=== PATIENT | female | born 1945 | race Caucasian/White ===

== ENCOUNTER 2017-08-21 19:03 | Inpatient (IN) | payer MEDICARE ==
[~2017-08-21 19:03] MED LIST: ISOVUE-370 76%-LOCM 1 ML ONE
--- NOTE | 2017-08-21 22:05 | CT ---
CT ANGIOGRAM BRAIN WITH IV CONTRAST AND 3D MIP RECONSTRUCTIONS: 08/21/17 PROVIDED CLINICAL HISTORY: Midline facial droop and difficulty speaking. FINDINGS: No comparison examinations are currently available. The ventricular system appears normal in size an d morphology. Evaluation for intracranial hemorrhage is limited given presence of IV contrast materia l, without gross evidence for such. There is no evidence for focal vessel stenosis, branch occlusion or aneurysm. The extracranial soft tissues and osseous structures demonstrate no acute abnormality. IMPRESSION: Normal CT angiogram of the brain. POS: [facility]
[2017-08-22] MEDS ORDERED: Acetaminophen 325 MG TAB PO PRN (02:19)
[2017-08-22] MEDS ORDERED: Ondansetron ODT 4 MG TAB SL PRN (02:19)
[2017-08-22] MEDS ORDERED: Sodium Chloride 0.9% 1,000 ML IV SCH (02:19)
[2017-08-22] MEDS ORDERED: Ondansetron HCl/PF 4 MG/2 ML Vial IVP PRN ×2 (02:19→04:11)
[2017-08-22 02:33] VITALS: BMI 34.3
[2017-08-22] MEDS ORDERED: HYDROcodone/Acetaminophen 10/325 mg Tablet PO PRN (04:11)
[2017-08-22] MEDS ORDERED: HYDROcodone/Acetaminophen 5/325 mg Tablet PO PRN (04:11)
[2017-08-22] MEDS ORDERED: Ondansetron ODT 4 MG TAB PO PRN (04:11)
[2017-08-22] MEDS ORDERED: Atorvastatin Calcium 40 MG TAB PO SCH (04:15)
[2017-08-22] MEDS ORDERED: Enoxaparin Sodium 40 MG/0.4 ML SYRINGE SC SCH (04:15)
[2017-08-22 05:57] LABS: #Lymphocytes 1.2 thou/uL (1.20-3.40); #Monocytes 0.8 thou/uL (0.11-0.59); #Neutrophils 8.4 thou/uL (1.40-6.50); %Basophils 0.3 % (0.0-1.0); %Eosinophils 0.3 % (0.0-10.0); %Lymphocytes 11.1 % (21.0-51.0); %Monocytes 7.7 % (0.0-10.0); %Neutrophils 80.6 % (42.0-75.0); Mean Corpuscular HGB CONC 33.6 g/dL (32.0-36.0); Mean Corpuscular Hemoglobin 33.2 pg (27.0-31.0); Mean Corpuscular Volume 98.8 fl (81.0-99.0); Mean Platelet Volume 6.7 fL (7.4-10.4); Platelet Count 283 thou/uL (130-400); RBC Distribution Width 11.6 % (11.5-14.5); Red Blood Cell (RBC) Count 4.23 mill/uL (4.20-5.40); White Blood Cell (WBC) Count 10.4 thou/uL (4.8-10.8)
[2017-08-22 06:09] LABS: Anion Gap 15 mmol/L (10-20); BUN (Urea Nitrogen) 13 mg/dL (9.8-20.1); Calc. Creatinine Clearance 89 mL/min (70-130); Calcium 9.3 mg/dL (7.8-10.44); Carbon Dioxide 20 mmol/L (23-31); Cardiac Risk 3.5 (Less than 4.5); Chloride 104 mmol/L (98-107); Cholesterol 215 mg/dl (< 200 Desired); Estimated GFR-MDRD 64; Glucose 123 mg/dL (83-110); HDL Cholesterol 61 mg/dL (>60 Neg Risk); LDL Cholesterol, Calculated 130 mg/dL; Magnesium 1.9 mg/dL (1.6-2.6); Potassium 4.1 mmol/L (3.5-5.1); Sodium 135 mmol/L (136-145); Triglycerides 118 mg/dL (Less than 150)
--- NOTE | 2017-08-22 07:29 | HP ---
DATE OF ADMISSION: 08/22/2017 PRIMARY CARE PHYSICIAN: Dr. Marks PRIMARY COMPUTER APPLICATIONS DEVELOPER: Dr. Mott TIME OF SERVICE: 0345 CHIEF COMPLAINT: Aphasia. HISTORY OF PRESENT ILLNESS: Ms. Martino is a 72-year-old white female with a history of insomnia, but really no other medical history. She sees Dr. Mott about once a year, just to make sure her heart is okay. She takes no medications. She presented to an outside Emergency Department [facility] for acute onset of headache yesterday morning and around 11:00 a.m. developed expressive aph lauren where her words that she was speaking were not the ones she was trying to say. She was seen and evaluated there. CT scan was negative. Labs were normal. She was subsequently tra nsferred to [facility] as we are the nearest stroke center. On arrival, the patient continued to be aphasic. She was not dysarthric and no other neurologic symp toms. She was seen and evaluated in the ER and we were subsequently called for admission. The patient was placed on the stroke unit as an inpatient, and the patient was seen and evaluated teresa und 0345. At that time she still had no other neurologic deficits. She was arousable and awake and alert. She clearly had almost a word salad picture and was also getting frustrated. She denies any fevers or c hills, no chest pain, shortness of breath, no nausea or vomiting. No diplopia or change in her visio n, hearing, taste or smell otherwise. At the outside ER, she got aspirin 324 mg, Neurology was contacted, but due to multiple factors, she was not a candidate for t-PA. PAST MEDICAL HISTORY: Insomnia. PAST SURGICAL HISTORY: None. HOME MEDICATIONS: None. ALLERGIES: SULFA and PENICILLIN G. FAMILY HISTORY: Negative for clotting or bleeding disorder. No immune dysfunction, no premature cor onary disease and no strokes at an early age. SOCIAL HISTORY: Negative for habits x3. REVIEW OF SYSTEMS: A 10-point review of systems was performed and negative for all other systems exc ept as per HPI. PHYSICAL EXAMINATION: VITAL SIGNS: Temperature is 99.1, pulse 72, blood pressure 140/82, respiratory rate 22, satting 96% on room air. GENERAL: She is awake. She is alert. She is oriented x3. She is in no acute distress. HEENT: Normocephalic and atraumatic. Pupils equal, round, reactive to light bilaterally, mucous mem bers moist. She had no visible lesions, no thrush. No uvula deviation. NECK: Supple. There is no lymphadenopathy, JVD or thyromegaly. She has normal carotid upstrokes wi thout delay. I do not appreciate bruits. LUNGS: Clear to auscultation bilaterally. She has good air movement and symmetric chest excursion. No wheezes or rales. CARDIOVASCULAR: She is regular. She has normal S1, S2. No S3 or S4. No audible murmurs. ABDOMEN: Obese is nontender, nondistended, no masses, no organomegaly. She has no rebound, rigidity or guarding. EXTREMITIES: No cyanosis, no clubbing, with trace pedal edema. SKIN: Warm was well. She has no rashes or lesions. NEUROLOGIC: Shows cranial nerves II-XII are grossly intact. She has no dysarthria, no slurred speec h, but she does have Wernicke's aphasia. She has 5/5 strength in all lower extremities with normal r eflexes. No evidence of dysdiadochokinesia, had a conjugate gaze. MUSCULOSKELETAL: Normal to inspection. She has no joint inflammation or palpable effusions or defor mity. LABORATORY DATA: Sodium 138, potassium 4.3, chloride 104, bicarb 23, BUN 16, creatinine 0.96, calciu m 9.9, and glucose 143. INR is 1.0. Troponin I was 0.02. Urinalysis was negative. CBC showed a wh ite count of 9.5, hemoglobin 15.2, hematocrit 44.4, and platelet count 226,000. White count had norm al differential. Portable chest x-ray showed no acute cardiopulmonary disease. CT scan of the brain showed no detectable acute intracranial abnormalities. ASSESSMENT AND PLAN: 1. Acute ischemic stroke, likely a left middle cerebral artery distribution involving the temporal l obe. We will get a MRI/MRA. We will hold off on the carotids as she has no physical findings. We w ill hold up on the echo unless there is a watershed appearance. We will follow up on the findings. Neurology consult. Fasting lipid profile has been ordered, we will start her on full aspirin daily, atorvastatin 20 mg daily, and get PT, OT, and speech therapy to see her. She did pass her bedside sw allow and again I do not think has no motor deficits. 2. Insomnia. We will continue home medications.
[2017-08-22 09:11] LABS: #Lymphocytes 1.1 thou/uL (1.20-3.40); #Monocytes 0.9 thou/uL (0.11-0.59); #Neutrophils 7.8 thou/uL (1.40-6.50); %Basophils 0.1 % (0.0-1.0); %Eosinophils 0.3 % (0.0-10.0); %Lymphocytes 11.2 % (21.0-51.0); %Monocytes 8.8 % (0.0-10.0); %Neutrophils 79.7 % (42.0-75.0); Hemoglobin 14.3 g/dL (12.0-16.0); Mean Corpuscular HGB CONC 33.1 g/dL (32.0-36.0); Mean Corpuscular Hemoglobin 32.6 pg (27.0-31.0); Mean Corpuscular Volume 98.6 fl (81.0-99.0); Mean Platelet Volume 6.6 fL (7.4-10.4); Platelet Count 284 thou/uL (130-400); RBC Distribution Width 11.5 % (11.5-14.5); Red Blood Cell (RBC) Count 4.37 mill/uL (4.20-5.40); White Blood Cell (WBC) Count 9.7 thou/uL (4.8-10.8)
[2017-08-22 09:17] LABS: PTT 36.3 SEC (22.9-36.1); Prothrombin Time 13.6 SEC (12.0-14.7)
[2017-08-22 09:19] LABS: Calcium 9.6 mg/dL (7.8-10.44); Chloride 104 mmol/L (98-107); Glucose 134 mg/dL (83-110); Sodium 135 mmol/L (136-145)
[2017-08-22 09:20] LABS: Anion Gap 12 mmol/L (10-20); Carbon Dioxide 23 mmol/L (23-31)
[2017-08-22 09:21] LABS: Alkaline Phosphatase 69 U/L (40-150)
[2017-08-22 09:22] LABS: Calc. Creatinine Clearance 86 mL/min (70-130); Estimated GFR-MDRD 62
[2017-08-22 09:23] LABS: BUN (Urea Nitrogen) 13 mg/dL (9.8-20.1)
[2017-08-22 09:24] LABS: ALT (SGPT) 18 U/L (8-55); AST (SGOT) 17 U/L (5-34)
[2017-08-22 09:27] LABS: CKMB 0.6 ng/mL (0-6.6)
--- NOTE | 2017-08-22 10:25 | CT ---
NONCONTRAST HEAD CT: Date: 08/22/17 HISTORY: Stroke alert. Increasing confusion. COMPARISON: 08/21/17 at 2106 hours. TECHNIQUE: Noncontrast head CT is performed from skull base to skull vertex. FINDINGS: No parenchymal hemorrhage. No extra-axial hematoma. No midline shift. Basilar cisterns are patent. Co rtical arias-white matter differentiation is preserved. Ventricles and sulci are patent and symmetric. Chronic small vessel ischemic changes of the white matter are identified. Intact calvarium. Adequate aeration of the sinuses and mastoid air cells. IMPRESSION: No acute intracranial process. Results of study discussed with Dr. Davenport on 08/22/17 at 0913 hours. CODE CR. POS: [facility]
--- NOTE | 2017-08-22 10:40 | PDOC.PN ---
- Subjective Encounter Start Date: 08/22/17 Encounter Start Time: 10:00 Subjective: f/u for ? TIA with expressive aphasia/dysphasia and ? word salad. CT brain -: x 2 negative and CTA brain negative. Persists with dysphasia. No hx of -: chronic med conditions, no exposure hx. Low-grade temp noted overnight. - Objective Resuscitation Status: Resuscitation Status FULL:Full Resuscitation MAR Reviewed: Yes Vital Signs & Weight: Vital Signs (12 hours) Temp Pulse Pulse Pulse Pulse Resp Resp 08/22/17 08:54 99.7 F H 83 80 81 82 18 15 Resp BP BP BP BP Pulse Ox Pulse Ox 08/22/17 08:54 22 H 143/78 H 146/104 H 129/88 143/78 H 95 97 Pulse Ox Pulse Ox 08/22/17 08:54 97 97 I&O: 08/21/17 08/22/17 08/23/17 06:59 06:59 06:59 Intake Total 308 Balance 308 Result Diagrams: 08/22/17 09:01 08/22/17 09:01 Additional Labs: Accuchecks 08/22/17 08:56 POC Glucose 130 H Radiology Reviewed by me: Yes (CT brain neg x 2, CTA brain negative) EKG Reviewed by me: Yes (Tele - SR in 70's) Phys Exam - Physical Examination awake but sleepy, +expressive aphasia, follows some commands mild distress HEENT: PERRLA, oral pharynx no lesions no nuchal rigidity Neck: no JVD, supple, full ROM Respiratory: no wheezing, clear to auscultation bilateral Cardiovascular: RRR Gastrointestinal: soft, non-tender, no distention, positive bowel sounds Musculoskeletal: no edema, pulses present no focal weakness, R hand dominant, + expressive aphasia Neurological: normal sensation, moves all 4 limbs Skin: normal turgor, cap refill <2 seconds Dx/Plan (1) Expressive aphasia Code(s): R47.01 - APHASIA Status: Acute Comment: ? CVA with negative CT brain and CTA brain, check MRI, carotids and Echo, continue ASA, Lipitor, stroke protocol, Consult Neurology (2) Fever Code(s): R50.9 - FEVER, UNSPECIFIED Status: Acute Comment: ? etiology, CXR negative, check blood cx x 2, Ucx, CSF with cx, Influenza panel (3) Headache Code(s): R51 - HEADACHE Status: Acute Qualifiers: Headache type: tension-type Comment: ? tension type, Acetominophen, r/o meningitis with CSF analysis, see above (4) TIA (transient ischemic attack) Status: Acute Comment: ? TIA with CT brain neg x 2 and CTA brain neg. MRI pending (5) Hyperglycemia Code(s): R73.9 - HYPERGLYCEMIA, UNSPECIFIED Status: Acute Comment: Check A1C in am - Plan plan discussed w/ family, PT/OT, foster care social worker, speech therapy, DVT proph w/ SCDs Continue Stroke protocol -: Convert to inpt status -: Check CSF cx, Blood and Ucx -: Check Influenza A/B antigen -: Continue ASA and Lipitor * Check TSH, Ammonia, A1C * AM lab: BMP, CBC
[2017-08-22] MEDS ORDERED: Lorazepam 2 MG/ML VIAL SLOW IVP PRN (10:54)
[2017-08-22] MEDS: Famotidine 20 MG TAB PO SCH ×2 (11:44→20:09)
[2017-08-22] MEDS: Aspirin 325 MG TAB PO SCH (11:44)
[2017-08-22] MEDS: Acetaminophen 325 MG TAB PO PRN ×3 (11:44→20:09)
--- NOTE | 2017-08-22 12:32 | MRI ---
MRI BRAIN NONCONTRAST: History: Altered mental status. FINDINGS: There is no evidence of acute intracranial hemorrhage or infarct. Mild chronic ischemic small vessel disease is apparent within the periventricular white matter of each cerebral hemisphere. There is no mass effect or shift of midline structures. Ventricles appear normal in size, shape, and position. IMPRESSION: No acute intracranial abnormalities are demonstrated. POS: [facility]
[2017-08-22 14:10] LABS: CSF Source CSF; Clarity Clear (Clear); Tube # 4
[2017-08-22 14:12] LABS: RBC Count - Manual 0 /cumm (None Seen); WBC/NonHematics Count - Manual 2 /cumm (0-5)
--- NOTE | 2017-08-22 15:42 | RAD ---
FLUOROSCOPIC GUIDED LUMBAR PUNCTURE 08/22/17 HISTORY: Fever. Altered mental status. FINDINGS: After explaining the procedure and answering all questions, the lower back was prepped and draped in the usual sterile fashion. Sterile technique, buffered local anesthesia, fluoroscopic guidance, and a posterior midline approach were used to carefully advance the tip of a 20 gauge spinal needle to the thecal sac at the L2-3 level. Opening CSF pressure was upper limits of normal at 24 cm water. A total volume of 9 mL clear CSF was collected in four sterile tubes and submitted to pathology for e valuation. Needle was removed. Patient tolerated the procedure well and was returned in unchanged con dition. Fluoro time: 0.1 minutes IMPRESSION: Technically successful fluoroscopic guided lumbar puncture. Pathology is pending. POS: [facility]
[2017-08-22] MEDS: Dextrose 5 % And 0.9 % NaCl 1,000 ML IV SCH (16:32)
--- NOTE | 2017-08-22 16:42 | ULT ---
CAROTID DUPLEX SONOGRAM 08/22/17 HISTORY: TIA. Vascular disease. FINDINGS: RIGHT: Mild plaque is present. Color and spectral doppler evaluation, peak systolic velocity of 96 cm/s and IC to CC ratio of 1.7 suggests no hemodynamically significant stenosis within the extracranial right ICA. Right vertebral artery is not visualized. LEFT: Color and spectral doppler evaluation, peak systolic velocity of 107 cm/s and IC to CC ratio of 1.6 s uggests no hemodynamically significant stenosis within the extracranial left IAC. Antegrade flow is p resent within the vertebral artery. IMPRESSION: Mild atherosclerosis. No sonographic evidence of significant extracranial ICA stenosis. POS: [facility]
[2017-08-22 17:43] LABS: Amphetamine Not Detected (NotDetected); Barbiturates Screen Not Detected (NotDetected); Benzodiazepine Screen Not Detected (NotDetected); Cocaine Metabolite Screen Not Detected (NotDetected); Medtox Control Line Valid? VALID (VALID); Medtox Reader # READER 1; Methadone Not Detected (NotDetected); Methamphetamine Not Detected (NotDetected); Opiate Screen Not Detected (NotDetected); Oxycodone Screen Not Detected (NotDetected); Phencyclidine (PCP) Not Detected (NotDetected); THC/Cannabinoid Screen Not Detected (NotDetected); Tricyclic Screen Not Detected (NotDetected)
[2017-08-22] MEDS: cefTRIAXone\\ROCEPHIN 2 GM in Sodium Chloride 0.9% 100 ML IVPB SCH (20:09)
[2017-08-22] MEDS: Atorvastatin Calcium 20 MG TAB PO SCH (20:09)
[2017-08-22] MEDS: Acyclovir Sodium 600 MG in Sodium Chloride 0.9% 100 ML IVPB SCH (20:16)
--- NOTE | 2017-08-22 20:30 | CON ---
DATE OF CONSULTATION: 08/22/2017 CONSULTING PHYSICIAN: Hospitalist Service. IMPRESSION: Acute encephalopathy without evidence of structural or infectious process at this point, metabolic studies were also unremarkable. PLAN: 1. EEG. 2. Cortisol level. HISTORY OF PRESENT ILLNESS: Ms. Martino is a 72-year-old white female who reportedly was in her normal state of health until just prior to admission. She started acting inappropriately while sitting at the table looking at Facebook. She complains of some frontal headache. She was taken to the [facility] and transferred here. She was thought to have possibly suffered a stroke. She had a n MRI of the brain done, which did not show any significant ischemic changes either acute or chronic. She underwent a lumbar puncture this afternoon, which was clear and colorless. There were 2 white cells, no red cells, glucose of 69, and protein at 33. Her other laboratory studies include a CBC, c oags, and complex metabolic panel, which were unremarkable. The patient had a low-grade temperature of 99.7 since admission. She is still complaining of headache, she has been able to take medication, but continues to talk inappropriately. PAST MEDICAL HISTORY: Otherwise, negative. FAMILY HISTORY: Noncontributory. ALLERGIES: CODEINE, SULFA. MEDICATIONS: She recently took some anti-flu medication just prior to the onset of these symptoms. REVIEW OF SYSTEMS: Otherwise, not obtainable. PHYSICAL EXAMINATION: VITAL SIGNS: Blood pressure 147/83, pulse 79, respirations 18, temperature 98.1. HEENT: Pupils are equal and reactive. Conjunctivae clear. Oropharynx is clear. EXTREMITIES: No cyanosis. NEUROLOGIC: She appears to be awake, but would not answer questions appropriately. I could not get her to follow any commands. Her speech seemed to be clear without any dysarthria. Cranial nerve exa m was grossly symmetric. Motor exam showed symmetric tone. No abnormal movements were seen. Gait w as not tested. SUMMARY: This is a 72-year-old woman with an acute encephalopathic picture following ingestion of so me anti-flu medication. Thus far, she seems to have ruled out for meningitis, encephalitis and strok e. There are no other obvious metabolic abnormalities. Obtain an EEG tomorrow and hopefully if this is a toxic reaction, she cleared shortly.
[2017-08-23 05:05] LABS: Hemoglobin A1c 5.3 % (4.0-6.0)
[2017-08-23 05:10] LABS: Band 1 % (5-11); Eosinophils 1 % (0-10); Hemoglobin 12.5 g/dL (12.0-16.0); Lymphocytes 15 % (21-51); MDiff Complete? YES; Mean Corpuscular HGB CONC 34.1 g/dL (32.0-36.0); Mean Corpuscular Hemoglobin 33.9 pg (27.0-31.0); Mean Corpuscular Volume 99.3 fl (81.0-99.0); Mean Platelet Volume 6.9 fL (7.4-10.4); Monocytes 5 % (0-10); Neutrophil 78 % (42-75); PLT Morphology Comment Appears Adequate; Platelet Count 232 thou/uL (130-400); RBC Distribution Width 11.6 % (11.5-14.5); Red Blood Cell (RBC) Count 3.69 mill/uL (4.20-5.40); White Blood Cell (WBC) Count 7.3 thou/uL (4.8-10.8)
[2017-08-23 05:12] LABS: Anion Gap 12 mmol/L (10-20); BUN (Urea Nitrogen) 15 mg/dL (9.8-20.1); Calc. Creatinine Clearance 91 mL/min (70-130); Calcium 8.5 mg/dL (7.8-10.44); Carbon Dioxide 22 mmol/L (23-31); Chloride 106 mmol/L (98-107); Estimated GFR-MDRD 66; Glucose 128 mg/dL (83-110); Potassium 3.8 mmol/L (3.5-5.1); Sodium 136 mmol/L (136-145)
[2017-08-23] MEDS: Dextrose 5 % And 0.9 % NaCl 1,000 ML IV SCH ×2 (05:53→16:46)
[2017-08-23] MEDS: Acyclovir Sodium 600 MG in Sodium Chloride 0.9% 100 ML IVPB SCH ×3 (05:53→20:15)
[2017-08-23] MEDS: Aspirin 325 MG TAB PO SCH (08:49)
[2017-08-23] MEDS: Famotidine 20 MG TAB PO SCH ×2 (08:49→20:14)
[2017-08-23] MEDS: Enoxaparin Sodium 40 MG/0.4 ML SYRINGE SC SCH (08:50)
--- NOTE | 2017-08-23 10:23 | PDOC.PN ---
- Subjective Encounter Start Date: 08/23/17 Encounter Start Time: 10:15 Subjective: f/u AMS and essentially negative w/u directed toward CVA but all neg. -: Still has confusion and word salad. - Objective Resuscitation Status: Resuscitation Status FULL:Full Resuscitation MAR Reviewed: Yes Vital Signs & Weight: Vital Signs (12 hours) Temp Pulse Resp BP Pulse Ox 08/23/17 04:00 98.5 F 71 18 108/72 96 Weight Weight 211 lb 8 oz I&O: 08/22/17 08/23/17 08/24/17 06:59 06:59 06:59 Intake Total 308 2283 Output Total 300 Balance 308 1982 Result Diagrams: 08/23/17 04:40 08/23/17 04:40 Additional Labs: Microbiology 08/22/17 16:43 Nasal swab Influenza Types A,B Direct EIA - Final 08/22/17 13:31 Spinal Fluid Culture Cryptococcal Antigen - Final 08/22/17 16:07 Venous blood - Right Hand Blood Culture - Preliminary Specimen has been received and culture in progress. No Growth to date. 08/22/17 16:07 Venous blood - Right Arm Blood Culture - Preliminary Specimen has been received and culture in progress. No Growth to date. Laboratory Tests 08/22/17 08/22/17 08/22/17 05:27 10:41 10:41 Hemoglobin A1c Ammonia 26 Triglycerides 118 Cholesterol 215 H LDL Cholesterol, Calc 130 HDL Cholesterol 61 TSH 3rd Generation 2.1183 Cortisol 08/22/17 08/23/17 10:41 04:40 Hemoglobin A1c 5.3 Ammonia Triglycerides Cholesterol LDL Cholesterol, Calc HDL Cholesterol TSH 3rd Generation Cortisol 22.40 Radiology Reviewed by me: Yes (MRI brain - neg, Carotids neg, Echo EF 50-55%, diast dysfxn) EKG Reviewed by me: Yes (Tele - SR) Phys Exam - Physical Examination alert to name, word salad HEENT: PERRLA, oral pharynx no lesions Neck: no JVD, supple Respiratory: no wheezing, clear to auscultation bilateral Cardiovascular: RRR Gastrointestinal: soft, non-tender, no distention, positive bowel sounds Musculoskeletal: no edema, pulses present expressive aphasia Neurological: moves all 4 limbs A x O x 1 Skin: normal turgor, cap refill <2 seconds Dx/Plan (1) Acute metabolic encephalopathy Code(s): G93.41 - METABOLIC ENCEPHALOPATHY Status: Suspected Comment: Suspected given presentation and essentially negative work up to date, supportive mgmt (2) Expressive aphasia Code(s): R47.01 - APHASIA Status: Acute Comment: Suspect related to encephalopathic presentation and not CVA as MRI brain is negative, monitor clinically, ? EEG (3) Fever Code(s): R50.9 - FEVER, UNSPECIFIED Status: Acute Comment: ? etiology, CXR negative, empiric Rocephin 2gm IV daily and Acyclovir pending final cx results from CSF (4) Headache Code(s): R51 - HEADACHE Status: Acute Qualifiers: Headache type: tension-type Comment: ? tension type, Acetominophen, r/o meningitis with CSF analysis, see above (5) Hyperglycemia Code(s): R73.9 - HYPERGLYCEMIA, UNSPECIFIED Status: Acute Comment: A1C 5.3 - Plan plan discussed w/ family, continue antibiotics, PT/OT, social media marketing analyst, out of bed/ambulate, DVT proph w/SCDs Continue supportive mgmt -: EEG pending -: Continue IVF's -: Continue Rocephin and Acyclovir -: D/C ASA * Continue to monitor for clinical improvement
--- NOTE | 2017-08-23 18:14 | PRG ---
DATE OF SERVICE: 08/23/2017. FOLLOWUP NEUROLOGIC EVALUATION Ms. Martino continues to act inappropriately. She repeats the same phrases, "I want to do, I want to g o," and otherwise has not acted appropriately to the family either. Her exam remains nonfocal. She has not had anything that appeared to be seizure-like since yesterday. Her EEG showed normal backgro und without evidence of epileptiform activity. Her cortisol level was 22. Her vital signs have been stable overnight. She has been started on antibiotics for treatment of urinary tract infection. Ms. Martino's clinical presentation is quite odd, is not very typical of encephalopathy. I am uncertai n to say whether this may be all psychogenic. Agree with the current treatment and would anticipate this situation should clear up if it were related to the urinary tract infection or medication reacti on.
[2017-08-23] MEDS: cefTRIAXone\\ROCEPHIN 2 GM in Sodium Chloride 0.9% 100 ML IVPB SCH (20:14)
[2017-08-23] MEDS: Atorvastatin Calcium 20 MG TAB PO SCH (20:14)
[2017-08-24] MEDS: Dextrose 5 % And 0.9 % NaCl 1,000 ML IV SCH ×3 (03:01→14:15)
[2017-08-24] MEDS: Acyclovir Sodium 600 MG in Sodium Chloride 0.9% 100 ML IVPB SCH ×3 (05:24→20:29)
[2017-08-24] MEDS: Famotidine 20 MG TAB PO SCH ×2 (08:10→20:15)
[2017-08-24] MEDS: Enoxaparin Sodium 40 MG/0.4 ML SYRINGE SC SCH (08:10)
--- NOTE | 2017-08-24 13:12 | PDOC.PN ---
- Subjective Encounter Start Date: 08/24/17 Encounter Start Time: 13:00 Subjective: f/u for encephalopathy likely medication effect. Improving mental status -: per family and patient. Interacting appropriately with family. - Objective Resuscitation Status: Resuscitation Status FULL:Full Resuscitation MAR Reviewed: Yes Vital Signs & Weight: Vital Signs (12 hours) Temp Pulse Pulse Resp BP BP Pulse Ox 08/24/17 11:10 97.6 F 66 18 132/83 96 08/24/17 09:08 66 147/85 H 08/24/17 08:50 97.7 F 68 18 96 08/24/17 07:15 97.7 F 68 18 134/77 96 08/24/17 04:00 98.2 F 68 20 135/78 96 Weight Weight 211 lb I&O: 08/23/17 08/24/17 08/25/17 06:59 06:59 06:59 Intake Total 2283 4010 Output Total 300 Balance 1983 4010 Result Diagrams: 08/23/17 04:40 08/23/17 04:40 Radiology Reviewed by me: Yes (EEG - negative) EKG Reviewed by me: Yes (Tele - SR) Phys Exam - Physical Examination Constitutional: NAD alert, responsive HEENT: PERRLA, oral pharynx no lesions Neck: no JVD, supple Respiratory: no wheezing, clear to auscultation bilateral Cardiovascular: RRR Gastrointestinal: soft, non-tender, no distention, positive bowel sounds Musculoskeletal: no edema, pulses present Neurological: normal sensation, moves all 4 limbs A x O x 2 Skin: normal turgor, cap refill <2 seconds Dx/Plan (1) Acute metabolic encephalopathy Code(s): G93.41 - METABOLIC ENCEPHALOPATHY Status: Suspected Comment: Suspected given presentation and essentially negative work up to date, supportive mgmt, improving (2) Expressive aphasia Code(s): R47.01 - APHASIA Status: Acute Comment: Suspect related to encephalopathic presentation and not CVA as MRI brain is negative, monitor clinically, resolved (3) Fever Code(s): R50.9 - FEVER, UNSPECIFIED Status: Acute Comment: ? etiology, CXR negative, empiric Rocephin 2gm IV daily and Acyclovir pending final cx results from CSF, resolved (4) Headache Code(s): R51 - HEADACHE Status: Acute Qualifiers: Headache type: tension-type Comment: ? tension type, Acetominophen, r/o meningitis with CSF analysis, see above (5) Hyperglycemia Code(s): R73.9 - HYPERGLYCEMIA, UNSPECIFIED Status: Acute Comment: A1C 5.3 - Plan plan discussed w/ family, continue antibiotics, PT/OT, out of bed/ambulate, DVT proph w/SCDs Stable overall -: Improving mental status overall -: OOB/ambulate with assist -: Continue Rocephin and Acyclovir another 24h then d/c -: Decrease IVF's 50ml/h * Likely home in 24h
[2017-08-24] MEDS ORDERED: Dextrose 5 % And 0.9 % NaCl 1,000 ML IV SCH (13:14)
[2017-08-24] MEDS ORDERED: Dextrose 5 %-0.45 % NaCl 1,000 ML IV SCH (19:45)
[2017-08-24] MEDS: cefTRIAXone\\ROCEPHIN 2 GM in Sodium Chloride 0.9% 100 ML IVPB SCH (20:13)
[2017-08-24] MEDS: Atorvastatin Calcium 20 MG TAB PO SCH (20:14)
[2017-08-24] MEDS: Acetaminophen 325 MG TAB PO PRN (20:15)
[2017-08-25] MEDS: Acyclovir Sodium 600 MG in Sodium Chloride 0.9% 100 ML IVPB SCH ×2 (05:29→11:12)
[2017-08-25] MEDS: Acetaminophen 325 MG TAB PO PRN (07:17)
[2017-08-25] MEDS: Famotidine 20 MG TAB PO SCH (08:34)
[2017-08-25] MEDS: Enoxaparin Sodium 40 MG/0.4 ML SYRINGE SC SCH (08:35)
[2017-08-25 12:21] VITALS: BP 160/97; TEMP 97.5
--- NOTE | 2017-08-25 15:37 | DIS ---
DATE OF ADMISSION: 08/21/2017 DATE OF DISCHARGE: 08/25/2017 DISCHARGE DIAGNOSES: 1. Acute encephalopathy, likely metabolic, resolving. 2. Expressive aphasia secondary to #1, resolved. 3. Febrile illness, likely viral, resolved. 4. Headache, resolved. 5. Hyperglycemia, mild. CONSULTATIONS: Dr. Froylan Mendoza with Neurology Service. PERTINENT LABORATORY AND X-RAY FINDINGS: Basic metabolic profile within normal limits. Hemoglobin A 1c 5.3. Magnesium 1.9. LFTs within normal limits. Serum ammonia level 26. Troponin I negative x1. Albumin 4.0. Total cholesterol 215, triglycerides 118, HDL 61, LDL 130. TSH 2.12. Serum cortisol level 22.4. CBC showed a white blood cell count ranging between 7.3-10.4, hemoglobin ranged between 12.5-14.3. Urine drug screen dated 08/22/2017 negative. Blood cultures x2 from 08/22/2017 showed n o growth at 48 hours. Urine culture dated 08/22/2017 showed no growth at 48 hours. Influenza A and B antigen dated 08/22/2017 negative. Cryptococcal antigen from CSF sample negative 08/22/2017. CT a ngiogram of the [place] dated 08/21/2017 showed no acute findings. A 2D transthoracic echoc ardiogram dated 08/22/2017 showed ejection fraction of 50-55%, diastolic dysfunction, mild mitral and tricuspid valve regurgitation. MRI of the brain dated 08/22/2017 showed no acute intracranial proce ss, mild chronic ischemic white matter changes noted. CT of the brain dated 08/22/2017 negative. Ca rotid Doppler study dated 08/22/2017 showed no hemodynamically significant stenosis. HOSPITAL COURSE: The patient was admitted to the stroke unit after initially presenting with express good aphasia and concern for an acute ischemic CVA/TIA. The patient underwent extensive neuroimaging and general stroke protocol; however, all neuro imaging was negative. The patient continued with per sistent expressive aphasia and altered mentation concerning for acute metabolic flash toxic encephalo yulisa of unclear etiology. The patient underwent CSF evaluation without specific organisms identifie d to confirm an infectious process. The patient was placed on empiric Rocephin and acyclovir; howeve r, no specific evidence confirming meningitis type picture. The patient was evaluated by the Neurolo gy Service due to patient's presentation and clinical findings; however, the patient did undergo EEG evaluation showing negative findings. The patient was given general supportive measures including IV fluids, empiric antibiotic coverage with Rocephin, and antiviral therapy with acyclovir. The patien t slowly clinically improved over the next 72 hours, returning to baseline mental status function per family report. Suspicion was for potential metabolic influence from possible [id number] flu r emedy however, this was unconfirmed. The patient continued to clinically improve and return to basel ine functional status and ambulating without difficulty, tolerating regular oral intake, and with sta ble vital signs. The patient overall clinically stabilized and ready for discharge on 08/25/2017. DISCHARGE MEDICATIONS: None. FOLLOWUP: The patient may follow up with her primary care provider, Dr. Mindy Puga within 7 days o f discharge. CONDITION ON DISCHARGE: Stable. ACTIVITY: [place]. DIET: Regular. CODE STATUS: FULL. DISPOSITION: Home, 08/25/2017.
[2017-08-28 13:17] LABS: VDRL, CSF Non Reactive (Non Rea:<1:1)
--- NOTE | 2017-08-31 14:20 | EKG ---
Test Reason : Blood Pressure : / mmHG Vent. Rate : 075 BPM Atrial Rate : 075 BPM P-R Int : 148 ms QRS Dur : 076 ms QT Int : 392 ms P-R-T Axes : 060 043 013 degrees QTc Int : 437 ms Normal sinus rhythm Nonspecific T wave abnormality Abnormal ECG Confirmed by GIO WALLS, GIDEON ([id number]), photographic editor MIKI WALTER ([id number]) on 08/31/2017 2:20:00 PM Referred By: Confirmed By:GIDEON POWERS MD
--- NOTE | 2017-09-04 15:53 | EEG ---
Referring Physician: TODD STODDARD EEG # [id number] TEST TYPE: ROUTINE PORTABLE INPATIENT REPORT: AN EEG USING THE INTERNATIONAL TEN-TWENTY SYSTEM OF ELECTRODE PLACEMENT WAS PERFORMED. The waking background is an 8-9 hertz alpha frequency. The patient was drowsy during the study, but no sleep was seen. Photic stimulation was unremarkable. No epileptiform features were noted. IMPRESSION: THIS IS A NORMAL AWAKE AND DROWSY EEG. Scrum Product Owner: jersey Lockstitch Front Maker: [email or web address]
== END 2017-08-25 12:48 | disposition home or self-care (01) | DRG 92 ==
LOC: EDSEX 19:03 → ERS 19:03 → 2SE 22:45 → OBSVTOIN 08-22 04:02
PROVIDERS: ADMIT Internal Medicine Infectious Disease; ATTEND Internal Medicine Infectious Disease
PROC: 009U3ZX Drainage of Spinal Canal, Percutaneous Approach, Diagnostic (ICD-10-PCS; principal; 2017-08-22)
PROC: B01B1ZZ Fluoroscopy of Spinal Cord using Low Osmolar Contrast (ICD-10-PCS; 2017-08-22)
DX: G92 Toxic encephalopathy (principal); R47.01 Aphasia; T50.905A Adverse effect of unspecified drugs, medicaments and biological substances, initial encounter; B34.9 Viral infection, unspecified; R51 Headache; R73.9 Hyperglycemia, unspecified; G47.00 Insomnia, unspecified
CPT/HCPCS: 36415; 36416; 62270; 70450; 70496; 70551; 80048; 80061; 80306; 82140; 82533; 82553; 82945; 83036; 83735; 84157; 84443; 84484; 85007; 85025; 85027; 85610; 85730; 86592; 86612; 86635; 86698; 87040; 87086; 87804; 87899; 89051; 93005; 93306; 93880; 95816; 95819; A4216; A4353; G8978-GP-CL; G8979-GP-CI; G8987-GO-CL; G8988-GO-CJ; G9159-GN-CM; G9160-GN-CK; J0133; J0696; J1650; J2060; J2405; J7050